=== PATIENT | male | born 1960 | race Caucasian/White ===

== ENCOUNTER → 2021-03-31 | Day surgery (SDC) | payer OTHER, MEDICARE ==
[~2021-03-31] VITALS: Ht 185.4 cm; Wt 93.2 kg
[~2021-03-31] MED LIST: BENADRYL25 MG PO; CARAFATE1 GM PO; COZAAR50 MG PO; CRESTOR5 MG PO; DEPO-TESTO200 MG/1 M IN; FOLIC ACID1 MG PO; MAG-OXIDE 400M400 MG PO; NEURONTIN300 MG PO; NORCO 5-325 TA1 EACH PO; PROTONIX 40MG T40 MG PO; ZYRTEC10 MG PO
[2021-03-31 07:22] LABS: HGB 16.2 g/dl (13.2-18.0); MCH 32.4 pg (25.0-31.0); MCHC 34.5 g/dL (32.0-36.0); MPV 10.9 fL (6.0-9.5); RDW 13.6 % (11.5-14.0); WBC 7.2 K/uL (4.0-10.5)
[2021-03-31 07:40] LABS: ALBUMIN 3.8 g/dL (3.4-5.0); BILIRUBIN - TOTAL 0.8 mg/dL (0.2-1.0); BUN/CREAT RATIO (CALC) 18.4 RATIO; CREATININE 0.98 mg/dL (0.67-1.17); GLOBULIN (CALCULATION) 3.6 g/dL; POTASSIUM 4.2 mmol/L (3.5-5.1); TOTAL PROTEIN 7.4 g/dL (6.4-8.2)
== END | disposition home or self-care (01) ==
LOC: FAS 06:45
PROVIDERS: Surgery
DX: K29.50 Unspecified chronic gastritis without bleeding (principal); K20.0 Eosinophilic esophagitis; K64.1 Second degree hemorrhoids; K62.5 Hemorrhage of anus and rectum; Z85.01 Personal history of malignant neoplasm of esophagus; I10 Essential (primary) hypertension
CPT/HCPCS: 36415; 80053; J1100; J1610; J2704; J7120